=== PATIENT | female | born 1955 | race Caucasian/White ===

== ENCOUNTER 2016-07-27 06:55 | Day surgery (SDC) | payer BC ==
[~2016-07-27 06:55] MED LIST: RINGERS SOLUTION,LACTATED 1,000 ML IV PRN
[2016-07-27] MEDS ORDERED: RINGERS SOLUTION,LACTATED 1,000 ML IV ONE (07:29)
[2016-07-27 09:26] VITALS: BP 112/57
--- NOTE | 2016-07-27 13:59 | OR ---
Operative Report - Dictated Report Narrative: OPERATIVE REPORT DATE OF OPERATION: 07/27/2016 PREOPERATIVE DIAGNOSIS: Family history of colon cancer. No recent dedicated colon studies. POSTOPERATIVE DIAGNOSIS: Diverticulosis OPERATION: Colonoscopy SURGEON: Pavan Sun MD ANESTHESIA: GLORIA Alfaro CRNA INDICATIONS FOR PROCEDURE: The patient is a 61-year-old female referred by Dr. Bach. The patient had an incomplete colonoscopy in 2005 with removal of a hyperplastic polyp. Repeat colonoscopy in 2009 did reach the cecum, and she had 2 small hyperplastic polyps removed. Scattered diverticulosis was noted. The patient's grandmother had colon cancer at age 80. The patient is asymptomatic. FINDINGS: Very capacious redundant colon. Exam did reach the cecum. Scattered sigmoid diverticulosis NARRATIVE OF PROCEDURE: The patient was identified in the holding area, and prior to the administration of anesthetic, a multidisciplinary timeout was observed. With the patient in the left lateral position and after the administration of intravenous sedation, the perineum was inspected. There was no evidence of pilonidal disease or skin breakdown. The external appearance of the anus was normal. Sphincter tone was good. The flexible fiberoptic colonoscope was inserted into the rectum which was insufflated with air. The rectal mucosa and submucosal vascular pattern appeared normal, the prep was seen to be complete. The scope was advanced through the sigmoid colon, up the descending colon, and around the splenic flexure where the triangular haustral architecture of the transverse colon was seen. The scope was advanced across the transverse colon, around the hepatic flexure to the cecum, where the confluence of tenia and the ileocecal valve were identified. The mucosa at this level appeared normal. The scope was then slowly withdrawn in a circular fashion so that all aspects of colonic mucosa were inspected. The colon was very capacious in character and redundant in course. The haustral architecture appeared well preserved throughout with no evidence of external compression. The mucosa and submucosal vascular pattern appeared normal, specifically there was no gross evidence to suggest colitis or inflammatory bowel disease and no AV malformations were seen. There were scattered small sigmoid diverticula with no evidence of inflammation. No polyps were encountered. The scope was gradually withdrawn to the level of the rectum. As much insufflated air as possible was removed. The scope was withdrawn from the patient and the procedure terminated. The patient tolerated the anesthetic and procedure well without complication and was transferred back to the ambulatory surgery area awake and in stable condition. The patient remained stable throughout a period of postoperative observation. She denied abdominal discomfort, was able to tolerate by mouth intake, and was up without assistance. I shared the operative findings with the patient and she was given copies of the photographs which appear in the medical record. She was discharged home with instructions not to engage in hazardous activity today , but may resume normal activity tomorrow, and advance diet as tolerated. She is to continue those medications as listed in the history and physical exam. RECOMMENDATION: Colon surveillance in 10 years depending upon findings or symptoms Reviewed and electronically signed
== END 2016-07-27 06:56 | disposition home or self-care (01) ==
LOC: AMB 06:55
PROVIDERS: ATTEND Surgery
PROC: 0DJD8ZZ Inspection of Lower Intestinal Tract, Via Natural or Artificial Opening Endoscopic (ICD-10-PCS; principal; 2016-07-27 08:00)
DX: Z12.11 Encounter for screening for malignant neoplasm of colon (principal); K57.30 Diverticulosis of large intestine without perforation or abscess without bleeding; Z80.0 Family history of malignant neoplasm of digestive organs; Z86.010 Personal history of colon polyps; Z87.891 Personal history of nicotine dependence; Z68.31 Body mass index [BMI] 31.0-31.9, adult

== ENCOUNTER 2016-09-26 22:05 | Emergency (ER) | payer BC ==
[2016-09-26 22:41] LABS: Urine Bilirubin Negative (NEGATIVE); Urine Blood 250 /ul (NEGATIVE); Urine Ketone Negative (NEGATIVE); Urine Nitrite Negative (NEGATIVE); Urine Protein 15 mg/dL (NEGATIVE); Urine Specific Gravity <=1.005 SP.GR. (1.005-1.010); Urine Urobilinogen Normal (NORMAL)
[2016-09-26 22:51] LABS: Urine Appearance Clear; Urine Bacteria 1+; Urine Color Yellow; Urine RBC 25-50 /hpf (0-5)
--- NOTE | 2016-09-26 23:38 | ERNOTE ---
ER Female HPI Stated Complaint: UTI Presenting Symptoms: dysuria Time Seen by Provider: 09/26/16 23:33 Source: patient Exam Limitations: no limitations Immunizations: IMMUNIZATION HX Immunizations Up to Date Yes History of Influenza Vaccine Yes Allergies/Adverse Reactions: Allergies fluconazole [From Diflucan] Allergy (Severe, Verified 07/27/16 07:08) Swelling of Throat Home Medications: HOME MEDICATIONS Ibuprofen [Motrin] 600 mg PO DAILY 07/20/16 [Last Taken Unknown] Loratadine [Claritin] 10 mg PO DAILY 07/20/16 [Last Taken Unknown] Nystatin/Triamcin [Mycolog Cream] 1 appl TP BID 07/20/16 [Last Taken Unknown] Triamcinolone Acetonide [Kenalog 0.1%] 15 gm TP DAILY 07/20/16 [Last Taken Unknown] Ciprofloxacin HCl [Cipro] 500 mg PO BID #28 tab 09/27/16 [Last Taken Unknown] Phenazopyridine HCl [Pyridium] 200 mg PO TID #9 tablet 09/27/16 [Last Taken Unknown] - History of Present Illness Narrative: Pt began to have urinary frequency with some dysuria and general malaise this morning and continued to get worse Timing: Present: getting worse Quality: Present: moderate Onset Location: Present: suprapubic, right flank, left flank Radiation: Present: none Activities at Onset: Present: none Prior Abdominal Problems: Present: none Review of Systems - Review of Systems Constitutional: Absent: recent illness EYE: Present: no symptoms reported ENT: Present: no symptoms reported Respiratory: Present: no symptoms reported Cardiology: Present: no symptoms reported Gastrointestinal/Abdominal: Absent: nausea, vomiting Genitourinary: Present: See HPI Musculoskeletal: Present: back pain Skin: Present: no symptoms reported Neurological: Present: no symptoms reported Endocrine: Present: no symptoms reported Hematologic/Lymphatic: Present: no symptoms reported Psych: Present: no symptoms reported - Patient's Past Medical History Patient History - Medical: Other Patient History - Cardiac/Respiratory: No pertinent hx Patient History - Cancer: No Hx of Cancer Patient History - Surgical Procedures: Colonoscopy, T & A Patient History - Other: None LMP (females 10-50): Menopausal - Family History Father Family History - Medical: , Alzheimer's Disease, Diabetes Type 2 Family History - Cardiac/Respiratory: Hypertension Family History - Cancer: No pertinent family hx Mother Family History - Medical: Rheumatoid Arthritis Family History - Cardiac/Respiratory: Hypertension, Hyperlipidemia Family History - Cancer: No pertinent family hx - Social History Living Situations: spouse Abuse History: No History of abuse Psych History: No pertinent hx Smoking Status: Never smoker Do you dip or chew tobacco: No Alcohol Use: occasionally Drug Use: none - Immunizations Immunizations Up to Date: Yes History of Influenza Vaccine: Yes Physical Exam - Physical Exam General Appearance: Present: wd/wn, alert, mild distress Neck: Present: normal inspection, nontender Respiratory: Present: no respiratory distress, normal breath sounds, lungs clear Cardiovascular/Chest: Present: regular rate, rhythm, no murmur Gastrointestinal/Abdominal: Present: normal bowel sounds, nontender, nondistended, soft Back Exam: Present: normal range of motion, no CVA tenderness, no vertebral tenderness Extremity Exam: Present: normal inspection, normal range of motion, no edema Neurological Exam: Present: alert, oriented, normal mood/affect, no motor/ sensory deficits Skin Exam: Present: normal color, warm/dry ED Progress - Results and Orders Patient's Lab Results:: I have reviewed the patient's lab results. Results and Orders: Laboratory Tests 09/26/16 09/26/16 09/26/16 00:00 00:00 22:31 WBC 15.1 H Hgb 13.0 Hct 38.9 Plt Count 224 Sodium 140 Potassium 3.8 Chloride 107 H Carbon Dioxide 24.3 Anion Gap 12.5 BUN 22 Creatinine 0.96 Est GFR (Non-Af Amer) 63 BUN/Creatinine Ratio 22.9 H Random Glucose 135 H Calcium 9.0 Urine Color Yellow Urine Appearance Clear Urine pH 6.0 Ur Specific [place] <=1.005 Urine Protein 15 H Urine Glucose (UA) Negative Urine Ketones Negative Urine Blood 250 H Urine Nitrate Negative Urine Bilirubin Negative Prot Sulfosalicylic Acd 1+ Urine Urobilinogen Normal Ur Leukocyte Esterase 100 H Urine RBC 25-50 H Urine WBC 10-25 H Ur Epithelial Cells 5-10 H Urine Bacteria 1+ H Urine Culture Comments Culture to follow - Vital Signs Patient's Vital Signs:: I have reviewed the patient's vital signs. Vital Signs: Vital Signs 09/26/16 22:24 Temperature 36.6 C Pulse Rate 88 Respiratory 16 Rate Blood Pressure 147/93 O2 Sat by Pulse 100 Oximetry - Progress/Reassessment Chief Complaint: Genitourinary Problem Departure Clinical Impression: Pyelonephritis - Departure Disposition: Home Follow Up Needed Condition: Good Instructions: Pyelonephritis, Adult, [id number] Referrals: Sandi Ricketts MD [Primary Care Provider] - Prescriptions: Ciprofloxacin HCl [Cipro] 500 mg PO BID #28 tab Phenazopyridine HCl [Pyridium] 200 mg PO TID #9 tablet
[2016-09-26 23:52] LABS: Hematocrit 38.9 % (37.0-47.0); Mean Cell Volume 85.9 fl (78-100); Mean Corpuscular Hemoglobin 28.7 pg (27-31); Mean Corpuscular Hgb Conc 33.4 g/dl (32-36); Mean Platelet Volume 10.6 fl (6.0-9.5); Neutrophil # 10.8 K/mm3 (1.3-6.0); Neutrophil % 71.4 % (42-75.0); Platelet Count 224 K/mm3 (150-450); Red Blood Count 4.53 M/mm3 (4.2-5.4); Red Cell Distribution Width 12.9 % (11.5-14.0); White Blood Count 15.1 K/mm3 (4.0-10.5)
[2016-09-27 00:03] LABS: BUN/Creatinine Ratio 22.9 (9.0-21.6); Estimated Creat Clear 53.1; Potassium 3.8 mmol/L (3.4-4.6)
[2016-09-27 00:09] LABS: Anion Gap 12.5 mmol/L (6.8-13.8); Carbon Dioxide 24.3 mmol/L (24-32.6)
[2016-09-27] MEDS ORDERED: CIPROFLOXACIN HCL 250 MG TABLET PO ONE (00:16)
[2016-09-27] MEDS ORDERED: PHENAZOPYRIDINE HCL 100 MG TABLET PO ONE (00:17)
[2016-09-27] MEDS ORDERED: CIPROFLOXACIN HCL 250 MG TABLET ONE (00:25)
[2016-09-27] MEDS ORDERED: PHENAZOPYRIDINE HCL 100 MG TABLET ONE (00:25)
[2016-09-27 00:35] VITALS: BP 127/73
== END 2016-09-27 00:33 | disposition home or self-care (01) ==
LOC: ER 22:05
DX: N12 Tubulo-interstitial nephritis, not specified as acute or chronic (principal)